=== PATIENT | female | born 1955 | race American Indian/Alaskan Native ===

== ENCOUNTER 2016-06-29 10:20 | Emergency (ER) | payer MEDICARE ==
[2016-06-29 11:32] LABS: Hematocrit 41.2 % (30.3-42.9); Hemoglobin 13.5 gm/dl (10.1-14.3); Mean Corpuscular HGB Conc 33 % (30-34); Mean Corpuscular Hemoglobin 28 pg (28-32); Mean Corpuscular Volume 87 fl (79-97); Platelet Count 252 K/mm3 (140-440); Red Blood Count 4.76 M/mm3 (3.65-5.03); Red Cell Distribution Width 16.7 % (13.2-15.2); White Blood Count 7.6 K/mm3 (4.5-11.0)
--- NOTE | 2016-06-29 11:51 | XRay Report ---
ROUTINE CHEST, TWO VIEWS: HISTORY: Shortness of breath. The trachea, heart, mediastinal contour, lung matthew and bony thorax are unremarkable. IMPRESSION: Unremarkable chest x-ray.
[2016-06-29 11:52] LABS: Anion Gap 15 mmol/L; BUN/Creatinine Ratio 16.25; Blood Urea Nitrogen 13 mg/dL (7-17); Calcium 9.7 mg/dL (8.4-10.2); Carbon Dioxide 30 mmol/L (22-30); Chloride 100.4 mmol/L (98-107); Glucose 81 mg/dL (65-100); Potassium 3.9 mmol/L (3.6-5.0); Sodium 141 mmol/L (137-145)
[2016-06-29 11:56] LABS: Basophils % (Manual) 0 % (0.0-1.8); Blastocytes % (Manual) 0 %; Eosinophils % (Manual) 0 % (0.0-4.3)
[2016-06-29 11:57] LABS: Anisocytosis 1+; Diff Status Complete; Large Platelets Few; Platelet Estimate Cons
--- NOTE | 2016-06-29 18:14 | Emergency Department Report ---
ED General Adult HPI - General Chief complaint: Chest Pain Stated complaint: CHEST PAIN Time Seen by Provider: 06/29/16 18:11 Source: patient Mode of arrival: Ambulatory Limitations: No Limitations - History of Present Illness Initial comments: The patient presents to the emergency department with a chief complaint of urinary frequency times the last 3 days. She has multiple other supplemental complaints. They include abdominal pain, chest pain, having to use her inhaler times one yesterday because of asthma, insomnia, occasional cough, occasional feelings of malaise. Patient denies chest pain on exertion or pleuritic chest pain. She's had no recent fever or chills. She states clearly she came to the emergency department because her primary care doctor's office was closed. -: Gradual, days(s) Location: chest, abdomen Radiation: non-radiation Quality: aching Consistency: intermittent, now resolved Improves with: none Worsens with: none Associated Symptoms: denies other symptoms - Related Data Home Medications Medication Instructions Recorded Confirmed Last Taken Iron 1 tab PO BID 08/22/13 02/09/16 08/28/13 Ranitidine HCl [Ranitidine 300mg 300 mg PO DAILY 08/22/13 02/09/16 02/16/16 Cap] Gabapentin [Neurontin] 300 mg PO BID 02/15/16 02/15/16 02/16/16 Oxymetazoline HCl [Nasal [place]] 30 ml NS DAILY 02/15/16 02/15/16 Unknown amLODIPine [Norvasc] 10 mg PO DAILY 02/15/16 02/17/16 02/17/16 05:00 clonazePAM 0.5 mg PO QHS 02/15/16 02/15/16 Unknown Previous Rx's Medication Instructions Recorded Last Taken Type HYDROcodone/APAP 5-325 [[place] 1 each PO Q6HR PRN #20 tablet 09/03/13 02/16/16 Rx 5-325 mg TAB] Nitrofurantoin [place]/M-Cryst 100 mg PO Q12HR #7 capsule 06/29/16 Unknown Rx [Macrobid CAP] traMADol [Ultram] 50 mg PO Q6HR PRN #10 tablet 06/29/16 Unknown Rx Allergies Allergy/AdvReac Type Severity Reaction Status Date / Time No Known Allergies Allergy Verified 06/29/16 11:13 ED Review of Systems ROS: Stated complaint: CHEST PAIN Other details as noted in HPI Constitutional: weakness. denies: chills, fever Eyes: denies: eye pain, eye discharge, vision change ENT: denies: ear pain, throat pain Respiratory: denies: cough, shortness of breath, wheezing Cardiovascular: chest pain. denies: palpitations Endocrine: no symptoms reported Gastrointestinal: abdominal pain. denies: nausea, diarrhea Genitourinary: frequency. denies: urgency, dysuria, discharge Musculoskeletal: denies: back pain, joint swelling, arthralgia Skin: denies: rash, lesions Neurological: denies: headache, weakness, paresthesias Psychiatric: denies: anxiety, depression Hematological/Lymphatic: denies: easy bleeding, easy bruising ED Past Medical Hx - Past Medical History Hx Hypertension: Yes (DX 2014) Hx GERD: Yes Hx of Cancer: Yes (BREAST 2013) Hx Arthritis: Yes Hx Kidney Stones: Yes Hx Psychiatric Treatment: Yes (ANXIETY) Hx Asthma: Yes Hx Tuberculosis: Yes (+PPD-TOOK PREVENTITIVE MEDS 25 YRS AGO) Additional medical history: Neuropathy,Umbilical hernia - Surgical History Hx Breast Surgery: Yes (RIGHT BREAST / LYMPH NODES / RECONSTRUCTION) Additional Surgical History: X2. TUBAL LIGATION - Social History Smoking Status: Former Smoker Substance Use Type: None - Medications Home Medications: Home Medications Medication Instructions Recorded Confirmed Last Taken Type Iron 1 tab PO BID 08/22/13 02/09/16 08/28/13 History Ranitidine HCl [Ranitidine 300mg 300 mg PO DAILY 08/22/13 02/09/16 02/16/16 History Cap] HYDROcodone/APAP 5-325 [[place] 1 each PO Q6HR PRN #20 tablet 09/03/13 02/09/16 Rx 5-325 mg TAB] Gabapentin [Neurontin] 300 mg PO BID 02/15/16 02/15/16 02/16/16 History Oxymetazoline HCl [Nasal [place]] 30 ml NS DAILY 02/15/16 02/15/16 Unknown History amLODIPine [Norvasc] 10 mg PO DAILY 02/15/16 02/17/16 02/17/16 05:00 History clonazePAM 0.5 mg PO QHS 02/15/16 02/15/16 Unknown History Nitrofurantoin [place]/M-Cryst 100 mg PO Q12HR #7 capsule 06/29/16 Unknown Rx [Macrobid CAP] traMADol [Ultram] 50 mg PO Q6HR PRN #10 tablet 06/29/16 Unknown Rx ED Physical Exam - General Limitations: No Limitations General appearance: alert, in no apparent distress - Head Head exam: Present: atraumatic, normocephalic - Eye Eye exam: Present: normal appearance, PERRL, EOMI. Absent: scleral icterus - ENT ENT exam: Present: mucous membranes moist - Neck Neck exam: Present: normal inspection - Respiratory Respiratory exam: Present: normal lung sounds bilaterally. Absent: respiratory distress - Cardiovascular Cardiovascular Exam: Present: regular rate, normal rhythm. Absent: systolic murmur, diastolic murmur, rubs, gallop - GI/Abdominal GI/Abdominal exam: Present: soft, normal bowel sounds. Absent: distended, tenderness, guarding, rebound, rigid - Extremities Exam Extremities exam: Present: normal inspection, full ROM, normal capillary refill. Absent: tenderness, pedal edema, joint swelling, calf tenderness - Back Exam Back exam: Present: normal inspection. Absent: CVA tenderness (R), CVA tenderness (L) - Neurological Exam Neurological exam: Present: alert, oriented X3, CN II-XII intact. Absent: motor sensory deficit - Psychiatric Psychiatric exam: Present: normal affect, normal mood - Skin Skin exam: Present: warm, dry, intact, normal color. Absent: rash ED Course Vital Signs 06/29/16 06/29/16 06/29/16 11:09 18:08 18:10 Temperature 97.6 F Pulse Rate 80 Respiratory 17 Rate Blood Pressure 152/85 148/91 148/91 O2 Sat by Pulse 99 99 Oximetry 06/29/16 18:16 Temperature Pulse Rate Respiratory 17 Rate Blood Pressure O2 Sat by Pulse 99 Oximetry ED Medical Decision Making - Lab Data Result diagrams: 06/29/16 11:23 06/29/16 11:23 Laboratory Results - last 24 hr 06/29/16 06/29/16 11:23 11:23 WBC 7.6 RBC 4.76 Hgb 13.5 Hct 41.2 MCV 87 MCH 28 MCHC 33 RDW 16.7 H Plt Count 252 Add Manual Diff Complete Total Counted 100 Seg Neuts % (Manual) 52.0 Band Neutrophils % 1.0 Lymphocytes % (Manual) 38.0 H Reactive Lymphs % (Man) 1.0 Monocytes % (Manual) 8.0 H Eosinophils % (Manual) 0 Basophils % (Manual) 0 Metamyelocytes % 0 Myelocytes % 0 Promyelocytes % 0 Blast Cells % 0 Nucleated RBC % Not Reportable Seg Neutrophils # Man 4.0 Band Neutrophils # 0.1 Lymphocytes # (Manual) 2.9 Abs React Lymphs (Man) 0.1 Monocytes # (Manual) 0.6 Eosinophils # (Manual) 0.0 Basophils # (Manual) 0.0 Metamyelocytes # 0.0 Myelocytes # 0.0 Promyelocytes # 0.0 Blast Cells # 0.0 WBC Morphology Not Reportable Hypersegmented Neuts Not Reportable Hyposegmented Neuts Not Reportable Hypogranular Neuts Not Reportable Smudge Cells Not Reportable Toxic Granulation Not Reportable Toxic Vacuolation Not Reportable Dohle Bodies Not Reportable Pelger-Huet Anomaly Not Reportable Simeon Rods Not Reportable Platelet Estimate Cons Clumped Platelets Not Reportable Plt Clumps, EDTA Not Reportable Large Platelets Few Giant Platelets Not Reportable Platelet Satelliting Not Reportable Plt Morphology Comment Not Reportable RBC Morphology Not Reportable Dimorphic RBCs Not Reportable Polychromasia Not Reportable Hypochromasia Not Reportable Poikilocytosis Not Reportable Anisocytosis 1+ Microcytosis Not Reportable Macrocytosis Not Reportable Spherocytes Not Reportable Pappenheimer Bodies Not Reportable Sickle Cells Not Reportable Target Cells Not Reportable Tear Drop Cells Not Reportable Ovalocytes Not Reportable Helmet Cells Not Reportable Coffey-[place] Bodies Not Reportable [place] Rings Not Reportable Dereck Cells Not Reportable Bite Cells Not Reportable Crenated Cell Not Reportable Elliptocytes Not Reportable Acanthocytes (Spur) Not Reportable Rouleaux Not Reportable Hemoglobin C Crystals Not Reportable Schistocytes Not Reportable Malaria parasites Not Reportable Ananth Bodies Not Reportable Hem Pathologist Commnt No Sodium 141 Potassium 3.9 Chloride 100.4 Carbon Dioxide 30 Anion Gap 15 BUN 13 Creatinine 0.8 Estimated GFR > 60 BUN/Creatinine Ratio 16.25 Glucose 81 Calcium 9.7 Troponin T < 0.010 Laboratory Results - last 24 hr 06/29/16 06/29/16 06/29/16 11:23 11:23 18:56 WBC 7.6 RBC 4.76 Hgb 13.5 Hct 41.2 MCV 87 MCH 28 MCHC 33 RDW 16.7 H Plt Count 252 Add Manual Diff Complete Total Counted 100 Seg Neuts % (Manual) 52.0 Band Neutrophils % 1.0 Lymphocytes % (Manual) 38.0 H Reactive Lymphs % (Man) 1.0 Monocytes % (Manual) 8.0 H Eosinophils % (Manual) 0 Basophils % (Manual) 0 Metamyelocytes % 0 Myelocytes % 0 Promyelocytes % 0 Blast Cells % 0 Nucleated RBC % Not Reportable Seg Neutrophils # Man 4.0 Band Neutrophils # 0.1 Lymphocytes # (Manual) 2.9 Abs React Lymphs (Man) 0.1 Monocytes # (Manual) 0.6 Eosinophils # (Manual) 0.0 Basophils # (Manual) 0.0 Metamyelocytes # 0.0 Myelocytes # 0.0 Promyelocytes # 0.0 Blast Cells # 0.0 WBC Morphology Not Reportable Hypersegmented Neuts Not Reportable Hyposegmented Neuts Not Reportable Hypogranular Neuts Not Reportable Smudge Cells Not Reportable Toxic Granulation Not Reportable Toxic Vacuolation Not Reportable Dohle Bodies Not Reportable Pelger-Huet Anomaly Not Reportable Simeon Rods Not Reportable Platelet Estimate Cons Clumped Platelets Not Reportable Plt Clumps, EDTA Not Reportable Large Platelets Few Giant Platelets Not Reportable Platelet Satelliting Not Reportable Plt Morphology Comment Not Reportable RBC Morphology Not Reportable Dimorphic RBCs Not Reportable Polychromasia Not Reportable Hypochromasia Not Reportable Poikilocytosis Not Reportable Anisocytosis 1+ Microcytosis Not Reportable Macrocytosis Not Reportable Spherocytes Not Reportable Pappenheimer Bodies Not Reportable Sickle Cells Not Reportable Target Cells Not Reportable Tear Drop Cells Not Reportable Ovalocytes Not Reportable Helmet Cells Not Reportable Coffey-[place] Bodies Not Reportable [place] Rings Not Reportable Dereck Cells Not Reportable Bite Cells Not Reportable Crenated Cell Not Reportable Elliptocytes Not Reportable Acanthocytes (Spur) Not Reportable Rouleaux Not Reportable Hemoglobin C Crystals Not Reportable Schistocytes Not Reportable Malaria parasites Not Reportable Ananth Bodies Not Reportable Hem Pathologist Commnt No Sodium 141 Potassium 3.9 Chloride 100.4 Carbon Dioxide 30 Anion Gap 15 BUN 13 Creatinine 0.8 Estimated GFR > 60 BUN/Creatinine Ratio 16.25 Glucose 81 Calcium 9.7 Troponin T < 0.010 Urine Opiates Screen Presumptive negative Urine Methadone Screen Presumptive negative Ur Barbiturates Screen Presumptive negative Ur Phencyclidine Scrn Presumptive negative Ur Amphetamines Screen Presumptive negative U Benzodiazepines Scrn Presumptive negative Urine Cocaine Screen Presumptive negative U Marijuana (THC) Screen Presumptive negative - EKG Data -: EKG Interpreted by Me EKG shows normal: sinus rhythm, axis, intervals, QRS complexes, ST-T waves Rate: normal - EKG Data Interpretation: normal EKG - Radiology Data Radiology results: report reviewed normal Critical care attestation.: If time is entered above; I have spent that time in minutes in the direct care of this critically ill patient, excluding procedure time. ED Disposition Clinical Impression: Atypical chest pain, Generalized abdominal pain UTI (urinary tract infection) Qualifiers: Urinary tract infection type: site unspecified Hematuria presence: without hematuria Qualified Code(s): N39.0 - Urinary tract infection, site not specified Disposition: DISCHARGED TO HOME OR SELFCARE Is pt being admited?: No Does the pt Need Aspirin: No Condition: Stable Instructions: Chest Pain (ED) Additional Instructions: Return any acute change or worsening. Her laboratory workup looks fine as well as her EKG and chest x-ray. Your urine might reflect a mild early urine infection. Rx as directed follow-up with her primary care provider. Prescriptions: Nitrofurantoin [place]/M-Cryst [Macrobid CAP] 100 mg PO Q12HR #7 capsule traMADol [Ultram] 50 mg PO Q6HR PRN #10 tablet PRN Reason: Pain Referrals: ROSAURA MILLER MD [Primary Care Provider] - 3-5 Days Time of Disposition: 19:56
[2016-06-29 19:01] LABS: Urine Drugs of Abuse Note Disclamer
[2016-06-29 19:18] LABS: Bilirubin,Urine NEG (Negative); Blood,Urine NEG (Negative); Ketones,Urine NEG (Negative); Leukocyte Esterase,Urine MOD (Negative); Mucus,Urine FEW /HPF; Nitrite,Urine NEG (Negative); Protein,Urine <15 mg/dL mg/dL (Negative); Urobilinogen,Urine < 2.0 mg/dL (<2.0)
[2016-06-29 20:05] VITALS: BP 138/87
== END 2016-06-29 20:00 | disposition home or self-care (01) ==
LOC: ED 10:20
DX: N39.0 Urinary tract infection, site not specified (principal); R07.89 Other chest pain; R10.84 Generalized abdominal pain; K21.9 Gastro-esophageal reflux disease without esophagitis; C50.919 Malignant neoplasm of unspecified site of unspecified female breast; I10 Essential (primary) hypertension; M19.90 Unspecified osteoarthritis, unspecified site; F41.9 Anxiety disorder, unspecified; J45.909 Unspecified asthma, uncomplicated; Z87.891 Personal history of nicotine dependence; Z98.51 Tubal ligation status
CPT/HCPCS: 36415; 71020; 80048; 80307; 81001; 84484; 85007; 85025; 87086; 93005; 93010